=== PATIENT | male | born 2000 | race Caucasian/White ===

== ENCOUNTER 2022-12-06 17:57 | Emergency (ER) | payer OTHER, SELFPAY ==
[2022-12-06 18:08] VITALS: BP 128/66; PULSE 82; RESP 20; TEMP 36.9; O2SAT 100
--- NOTE | 2022-12-06 18:12 | ED.LOWEXIN ---
HPI - Extremity Injury (Lower) General Chief Complaint: Extremity Injury, Lower Stated Complaint: Right Leg Injury Time Seen by Provider: 12/06/22 18:16 Source: patient Mode of arrival: ambulatory Limitations: no limitations History of Present Illness HPI Narrative: 22 y/o male presented for c/o bruising and swelling to right farley after injury while at work today. States he was moving a couch and while it was upright it slid down his farley. Reports the initial swelling is improving. States it feels sore. Denies numbness, tingling, weakness or decreased ROM. Not taking anything for pain. Related Data Home Medications Medication Instructions Recorded Confirmed No Home Medications 12/06/22 12/06/22 Allergies Allergy/AdvReac Type Severity Reaction Status Date / Time No Known Allergies Allergy Verified 12/06/22 18:13 Review of Systems Review of Systems: CONSTITUTIONAL: Denies body aches, fever, chills EYES: Denies visual changes ENT: Denies rhinorrhea, congestion CARDIOVASCULAR: Denies chest pain, palpitations, or edema. RESPIRATORY: Denies cough or dyspnea. SKIN: Denies rash, itching; reports abrasion right leg MUSCULOSKELETAL: Denies back pain, joint pain, or myalgia. NEUROLOGIC: Denies headache, numbness, tingling, or weakness. All systems reviewed & are unremarkable except as noted in HPI and below PMFSH Past Medical History Medical History (Updated 12/06/22 @ 18:24 by Maritza Huynh, NUNU) No pertinent past medical history Comments At time of signature, I have reviewed and agree with nursing past medical, surgical, social and family history unless otherwise noted. Please see nursing chart for further information. There is no relevant family history pertinent to the presenting complaint Exam Narrative: GENERAL: Well-appearing EYES: PERRLA, conjunctivae clear CHEST: Speaks in full sentences. No respiratory distress. HEART: Regular rate and rhythm. Normal and equal peripheral pulses. EXTREMITIES: RLE has normal strength and sensation, normal range of motion. Superficial abrasion with raised contusion to the right mid farley approx 2cm diameter, tender with palpation. No obvious deformity. pulse palpable and equal bilaterally, skin warm, dry, pink. Capillary refill less than 3 seconds. SKIN: Warm, dry, no rash. NEURO: Alert and oriented x3. PSYCH: Normal mood and affect Course Course Emergency Course: Patient is aware of diagnosis, understands and agrees to treatment plan. Anticipatory guidance given. Patient agrees to follow-up as directed and is aware of reasons to seek care at the emergency department. Portions of this record may have been created with voice recognition software Level of Care: Express Care Visit Vital Signs Vital signs: Vital Signs Temperature 98.4 F 12/06/22 18:08 Pulse Rate 82 12/06/22 18:08 Respiratory Rate 20 12/06/22 18:08 Blood Pressure 128/66 12/06/22 18:08 Pulse Oximetry 100 12/06/22 18:08 Oxygen Delivery Room Air 12/06/22 18:08 Temperature 98.4 F 12/06/22 18:08 Pulse Rate 82 12/06/22 18:08 Respiratory Rate 20 12/06/22 18:08 Blood Pressure 128/66 12/06/22 18:08 Pulse Oximetry 100 12/06/22 18:08 Oxygen Delivery Room Air 12/06/22 18:08 Reviewed MDM - Extremity Injury (Lower) MDM Narrative Medical decision making narrative: Discussed physical exam findings. Advised supportive measures and signs/symptoms to go to the ER. Pt is appropriate for outpt treatment and f/u. Differential Diagnosis Differential diagnosis: Likely other (leg fracture, contusion, abrasion, laceration) Discharge Plan Discharge Clinical Impression: Contusion of lower leg, right Qualifiers: Encounter type: subsequent encounter Qualified Code(s): S80.11XD - Contusion of right lower leg, subsequent encounter Patient Disposition: Home, Self-Care Condition: Stable Instructions: Contusion in Adults (ED) Additional Instruct
== END 2022-12-06 18:21 | disposition home or self-care (01) ==
PROVIDERS: Emergency Provider Nurse Practitioner Family
DX: S80.11XA Contusion of right lower leg, initial encounter (principal); X58.XXXA Exposure to other specified factors, initial encounter
CPT/HCPCS: 99202; G0463

== ENCOUNTER 2025-02-22 14:06 | Emergency (ER) | payer SELFPAY ==
[2025-02-22 14:10] VITALS: BP 130/71; PULSE 83; RESP 20; TEMP 36.8; O2SAT 100
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
--- OUTSIDE RECORDS SUMMARY | 2025-02-22 14:24 | XMS_ITS | Clinical Summary ---
Author Organization [facility] Address [address] [place] [address] Phone Care Team Providers Care After School Driver Name Role Phone Unavailable Primary Care Provider Unavailabl e Medications risperiDONE (RISPERDAL) 0.5 MG TabletIndication s:Agitation Take 1 Tablet by mouth 2 times daily. 60 Tablet 3 10/19/2020 Active Active Problems Problem Noted Date Diagnosed Date Agitation 10/19/2020 Immunizations Immunization Administration Dates Next Due DTAP VACCINE 03/24/2007,2002 DTP Vaccine 07/19/2003,2002,2002 Hepatitis A Vaccine, Pediatric/adolescent, 2 Dose Schedule 04/20/2014,12/30/2012 Hepatitis B Vaccine, Pediatric/adolescent 2002,2002,2002 Hib Vaccine,unspecified Formulation 07/04,2002,2002,03/25 Hpv, Unspecified Formulation 03/08/2016 Inactivated Polio Vaccine 06/19/2003,2002, 2002 MMR Vaccine 04/08/2003 Meningococcal Vaccine 12/30/2012 Pneumococcal Vaccine Peds - 7 Valent ,2002,2002,03/25 TDAP Vaccine 12/30/2012 Varicella Vaccine Live 04/08/2003 Family History Medical History Relation Name Comments No Known Problems Father No Known Problems Mother Relation Name Status Comments Father Alive Mother Alive Social History Tobacco Use Types Packs/Day Years Used Date Smoking Tobacco: Never Smokeless Tobacco: Never Tobacco Cessation:Counseling Given: Yes Alcohol Use Standard Drinks/Week Comments Not Currently 0 (1 standard drink = 0.6 oz pur e alcohol) PHQ-2 Answer Date Recorded Total Score - Questions 1-9 0 10/01 Sexually Active Control Partners Comments Yes Sex and Gender Information Value Date Recorded Sex Assigned at Not on file Legal Sex Male 12:40 AM CDT Gender Identity Not on file Sexual Orientation Not on file Last Filed Vital Signs Vital Sign Reading Time Taken Comments Blood Pressure 100/62 10/19/2020 3:22 PM CDT Pulse 81 10/19/2020 3:22 PM CDT Temperature 36.6 C (97.9 F) 10/19/2020 3:22 PM CDT Respiratory Rate 16 10/19/2020 3:22 PM CDT Oxygen Saturation 99% 10/19/2020 3:22 PM CDT Inhaled Oxygen Concentration - - Weight 72.5 kg (159 lb 12.8 oz) 10/19/2020 3:22 PM CDT Height 174.6 cm (5' 8.75) 10/19/2020 3:22 PM CD T Body Mass Index 23.77 10/19/2020 3:22 PM CDT Plan of Treatment Health Maintenance Due Date Last Done Comments Hepatitis C Virus (HCV) Screening 2002 Human Papillomavirus (HPV) Immunization (2 - Male 2-dose series) 09/06/2016 03/08/2016 Meningococcal B Immunization (1 of 2 - Standard) 2018 DTaP/Tdap/Td Immunization (7 - Td or Tdap) 12/30/2022 12/30/2012, 03/24/2007, 07/19/2003, Additional history exists Influenza Immunization (#1) 2025 SARS-COV-2 Immunization ( - season) 2025 Respiratory Syncytial Virus (RSV) Immunization (Adult) (1 - 1-dose 75+ series) 2077 Hepatitis B Immunization Completed 003, 2002, 2002 Measles Mumps Rubella (MMR) Immunization Discontinued 04/08/2003 Varicella Immunization Discontinued 04/08/2003 Pneumococcal Immunization Combined Aged Out 06/19/2003, 2002, 2002, Additional history exists No longer eligible based on patient's age to complete this topic Polio (IPV) Immunization Discontinued 004, 2002, 2002 Meningococcal Immunization (ACWY) Aged Out 12/30/2012 No longer eligible based on patient's age to complete this topic Hepatitis A Immunization Discontinued 04/20/2014, 12/03 Rotavirus Immunization Aged Out No lo nger eligible based on patient's age to complete this topic Insurance [facility]
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
== END 2025-02-22 14:28 | disposition home or self-care (01) ==
DX: T25.211A Burn of second degree of right ankle, initial encounter (principal); X08.8XXA Exposure to other specified smoke, fire and flames, initial encounter
CPT/HCPCS: 99213; G0463